=== PATIENT | male | born 1990 | race Caucasian/White ===

== ENCOUNTER 2024-11-14 08:39 | Emergency (ER) | payer OTHER ==
[~2024-11-14] VITALS: Ht 177.8 cm; Wt 109.8 kg
[2024-11-14 11:33] VITALS: BP 119/66; TEMP 97.2; O2SAT 100
== END 2024-11-14 11:35 | disposition home or self-care (01) ==
LOC: M ED 08:39
DX: M79.652 Pain in left thigh (principal); M79.18 Myalgia, other site

== ENCOUNTER 2025-01-26 09:35 | Day surgery (SDC) | payer OTHER ==
[~2025-01-26] VITALS: Ht 177.8 cm; Wt 108.0 kg
[~2025-01-26 09:35] MED LIST: ACETAMINOPHEN 1000MG/100ML IV BAG As Ordered ONE; LIDOCAINE 2% 100MG/5ML SDV (FOR ANES.) As Ordered ONE; MIDAZOLAM INJ 2MG/2ML VIAL As Ordered ONE; ONDANSETRON 4MG 2ML VIAL As Ordered ONE; fentaNYL 100 MCG/2 ML INJECTION As Ordered ONE; propofoL 200 MG/20 ML VIAL As Ordered ONE
[2025-01-26] MEDS ORDERED: fentaNYL 100 MCG/2 ML INJECTION IV PRN (09:50)
[2025-01-26] MEDS ORDERED: MORPHINE 2 MG/ML 1ML VIAL IV PRN ×2 (09:50→15:30)
[2025-01-26] MEDS ORDERED: ONDANSETRON 4MG 2ML VIAL IV PRN ×2 (09:50→15:30)
[2025-01-26] MEDS ORDERED: oxyCODONE 5MG TAB PO PRN (09:50)
[2025-01-26] MEDS ORDERED: LR 1,000 ML IV SCH (09:50)
[2025-01-26] MEDS: LIDOCAINE 1% SDV 5ML VIAL PN ONE (10:35)
[2025-01-26] MEDS: dexAMETHasone 10MG/1ML VIAL PRES.FREE PN ONE (10:35)
[2025-01-26] MEDS: ROPIvacaine 0.5% 30ML VIAL PN ONE (10:35)
[2025-01-26] MEDS: BUPivacaine LIPOSOME/PF 266MG 20ML VIAL (13.3MG/ML)(EXPAREL) PN ONE (11:00)
[2025-01-26] MEDS ORDERED: ROCURONIUM BROMIDE 50MG/5ML VIAL As Ordered ONE (11:29)
[2025-01-26] MEDS ORDERED: BUPivacaine LIPOSOME/PF 266MG 20ML VIAL (13.3MG/ML)(EXPAREL) PN ONE (11:30)
[2025-01-26] MEDS: fentaNYL 100 MCG/2 ML INJECTION IV PRN (11:40)
[2025-01-26] MEDS: MIDAZOLAM INJ 2MG/2ML VIAL IV PRN (11:40)
[2025-01-26] MEDS: ceFAZolin SOD 2 GM IV ONCE IV ONE (14:08)
[2025-01-26] MEDS: TRANEXAMIC ACID 100 MG/ML 10ML VIAL As Ordered ONE (14:30)
[2025-01-26] MEDS ORDERED: KETOROLAC 30 MG/ML 1ML VIAL As Ordered ONE (15:16)
[2025-01-26] MEDS ORDERED: SUGAMMADEX SODIUM 500 MG/5 ML VIAL (BRIDION) As Ordered ONE (15:16)
[2025-01-26] MEDS: TRANEXAMIC ACID 100 MG/ML 10ML VIAL IV ONE (15:25)
[2025-01-26] MEDS: VANCOMYCIN 1000MG/20ML VIAL As Ordered ONE (15:26)
[2025-01-26] MEDS: EPINEPHrine 1MG/ML INJ 30ML MD-VIAL As Ordered ONE (15:28)
[2025-01-26] MEDS ORDERED: HYDROMORPHONE HCL 0.5 MG/ 0.5 ML SYRINGE IV PRN (15:30)
[2025-01-26 17:38] VITALS: BP 123/72; TEMP 97.7; O2SAT 97
== END 2025-01-26 17:50 | disposition home or self-care (01) ==
LOC: M SDC 09:35
PROVIDERS: ATTEND Orthopaedic Surgery
DX: M75.82 Other shoulder lesions, left shoulder (principal); M65.812 Other synovitis and tenosynovitis, left shoulder
CPT/HCPCS: 29823; 64415; J0131; J0171; J0665; J0666; J0690; J1100; J1885; J2250; J2405; J3010

== ENCOUNTER → 2025-01-28 | Outpatient (CLI) | payer OTHER | LOC: M RAD 10:23 | PROVIDERS: ATTEND Physician Assistant Surgical | DX: R22.42 Localized swelling, mass and lump, left lower limb (principal) ==